=== PATIENT | female | born 1980 | race Caucasian/White ===

== ENCOUNTER → 2023-03-22 12:51 | Outpatient (BNVA) | payer MEDICARE, MEDICAID, SELFPAY | PROVIDERS: PCP Internal Medicine; Referring Provider Internal Medicine; Visit Provider Physician Assistant Surgical | DX: R05.3 Chronic cough (principal); F41.1 Generalized anxiety disorder | CPT/HCPCS: 99443 ==

== ENCOUNTER → 2023-06-29 15:11 | Outpatient (BNVA) | payer MEDICARE, MEDICAID, SELFPAY | PROVIDERS: PCP Internal Medicine; Referring Provider Internal Medicine; Visit Provider Student in an Organized Health Care Education/Training Program | DX: R05.9 Cough, unspecified (principal) | CPT/HCPCS: 99214 ==